=== PATIENT | female | born 1960 | race Two or more races ===

== ENCOUNTER 2020-01-17 06:00 | Outpatient (CLI) | payer OTHER ==
[~2020-01-17] VITALS: Ht 157.5 cm; Wt 90.7 kg
[2020-01-17] MEDS ORDERED: FLOVENT HFA10.6 GM IH (14:10)
[2020-01-17] MEDS ORDERED: NEURONTIN300 MG PO (14:10)
[2020-01-17] MEDS ORDERED: SINGULAIR 10MG10 MG PO (14:11)
[2020-01-17] MEDS ORDERED: RESTORIL15 MG PO (14:11)
[2020-01-17] MEDS ORDERED: LIPITOR40 M1 PO (14:12)
[2020-01-17] MEDS ORDERED: PROAIR RESPICL90 MCG IH (14:12)
[2020-01-17] MEDS ORDERED: AIRDUO RESPICL1 EACH IH (14:13)
[2020-01-17] MEDS ORDERED: HYDROXYZINE PAM (14:14)
[2020-01-17] MEDS ORDERED: HYDROCHLOROTHIA25 MG PO (14:15)
[2020-01-17] MEDS ORDERED: IPRAT-ALBUT 0.5-3 ML IH (14:15)
[2020-01-17] MEDS ORDERED: COZAAR100 MG PO (14:16)
[2020-01-17] MEDS ORDERED: NABUMETONE750 MG PO (14:16)
[2020-01-17] MEDS ORDERED: METFORMIN HCL500 M3 PO (14:16)
[2020-01-17] MEDS ORDERED: OMEPRAZOLE-BIC1 EAC1 PO (14:18)
[2020-01-17] MEDS ORDERED: CLONAZEPAM0.5 MG PO (14:18)
[2020-01-17] MEDS ORDERED: ZOLOFT50 MG PO (14:19)
== END 2020-01-17 06:10 | disposition home or self-care (01) ==
LOC: LAB 06:00 → EDSTATUS 01-25 08:30 → SURH 01-25 08:30
PROVIDERS: ATTEND Surgery
DX: K42.9 Umbilical hernia without obstruction or gangrene (principal); R19.00 Intra-abdominal and pelvic swelling, mass and lump, unspecified site; Z01.818 Encounter for other preprocedural examination; D64.89 Other specified anemias; R79.1 Abnormal coagulation profile; I10 Essential (primary) hypertension; R10.84 Generalized abdominal pain

== ENCOUNTER 2020-03-06 10:32 | Inpatient (IN) | payer OTHER ==
[~2020-03-06] VITALS: Ht 157.5 cm; Wt 90.7 kg
[~2020-03-06 10:32] MED LIST: AIRDUO RESPICL1 EACH IH; CLONAZEPAM0.5 MG PO; COZAAR100 MG PO; FLOVENT HFA10.6 GM IH; HYDROCHLOROTHIA25 MG PO; HYDROXYZINE PAM; IPRAT-ALBUT 0.5-3 ML IH; LIPITOR40 M1 PO; METFORMIN HCL500 M3 PO; NABUMETONE750 MG PO; NEURONTIN300 MG PO; OMEPRAZOLE-BIC1 EAC1 PO; PROAIR RESPICL90 MCG IH; RESTORIL15 MG PO; SINGULAIR 10MG10 MG PO; ZOLOFT50 MG PO
[2020-03-06] MEDS ORDERED: ZOLOFT50 MG PO (11:07)
[2020-04-05] MEDS ORDERED: ULTRAM50 MG PO (07:25)
[2020-04-05] MEDS ORDERED: FLAGYL500MG PO (07:25)
[2020-04-05] MEDS ORDERED: NEURONTIN300 MG PO (07:25)
[2020-04-05] MEDS ORDERED: MIRALAX17 GM PO (07:25)
[2020-04-05] MEDS ORDERED: TYLENOL ARTHRI650 MG PO (07:25)
[2020-04-05] MEDS ORDERED: INTESTINEX680 M1 PO (07:25)
[2020-04-05] MEDS ORDERED: DILTIAZEM HCL30 MG PO (07:25)
== END 2020-04-05 17:55 | disposition home or self-care (01) | DRG 330 ==
LOC: SURH 03-07 10:29 → O/R 03-21 06:43 → SURH 03-21 06:43
PROVIDERS: Surgery; ADMIT Obstetrics & Gynecology Gynecologic Oncology; ATTEND Obstetrics & Gynecology Gynecologic Oncology
PROC: 0DNW0ZZ Release Peritoneum, Open Approach (ICD-10-PCS; 2020-03-21)
PROC: 0WQF0ZZ Repair Abdominal Wall, Open Approach (ICD-10-PCS; 2020-03-21)
PROC: 0WUF0JZ Supplement Abdominal Wall with Synthetic Substitute, Open Approach (ICD-10-PCS; 2020-03-21)
PROC: 0KXL0Z6 Transfer Left Abdomen Muscle, Transverse Rectus Abdominis Myocutaneous Flap, Open Approach (ICD-10-PCS; 2020-03-21)
PROC: 0KXK0Z6 Transfer Right Abdomen Muscle, Transverse Rectus Abdominis Myocutaneous Flap, Open Approach (ICD-10-PCS; 2020-03-21)
PROC: 07BD0ZZ Excision of Aortic Lymphatic, Open Approach (ICD-10-PCS; 2020-03-21)
PROC: 07BC0ZZ Excision of Pelvis Lymphatic, Open Approach (ICD-10-PCS; 2020-03-21)
PROC: 0UB00ZZ Excision of Right Ovary, Open Approach (ICD-10-PCS; 2020-03-21)
PROC: 0DB80ZZ Excision of Small Intestine, Open Approach (ICD-10-PCS; principal; 2020-03-21 10:00)
PROC: 0DQ80ZZ Repair Small Intestine, Open Approach (ICD-10-PCS; 2020-03-21 10:00)
PROC: 3E0F7GC Introduction of Other Therapeutic Substance into Respiratory Tract, Via Natural or Artificial Opening (ICD-10-PCS; 2020-03-22)
PROC: 4A033R1 Measurement of Arterial Saturation, Peripheral, Percutaneous Approach (ICD-10-PCS; 2020-03-26)
PROC: BW21ZZZ Computerized Tomography (CT Scan) of Abdomen and Pelvis (ICD-10-PCS; 2020-04-01)
DX: K43.0 Incisional hernia with obstruction, without gangrene (principal); T81.49XA Infection following a procedure, other surgical site, initial encounter; J98.11 Atelectasis; K91.71 Accidental puncture and laceration of a digestive system organ or structure during a digestive system procedure; K42.0 Umbilical hernia with obstruction, without gangrene; K66.0 Peritoneal adhesions (postprocedural) (postinfection); D36.0 Benign neoplasm of lymph nodes; K43.2 Incisional hernia without obstruction or gangrene; J45.909 Unspecified asthma, uncomplicated; E66.8 Other obesity; K21.9 Gastro-esophageal reflux disease without esophagitis; I10 Essential (primary) hypertension; E11.9 Type 2 diabetes mellitus without complications; B96.6 Bacteroides fragilis [B. fragilis] as the cause of diseases classified elsewhere; R19.09 Other intra-abdominal and pelvic swelling, mass and lump; D27.0 Benign neoplasm of right ovary; E78.49 Other hyperlipidemia; K63.89 Other specified diseases of intestine